=== PATIENT | male | born 1990 | race Caucasian/White ===

== ENCOUNTER 2016-10-19 20:01 | Emergency (ER) | payer OTHER ==
[~2016-10-19] VITALS: Ht 182.9 cm; Wt 73.3 kg
[2016-10-19] MEDS ORDERED: IBUPROFEN 200 MG TABLET PO ONE (20:30)
[2016-10-19] MEDS ORDERED: OXYcodone/APAP 5/325MG TABLET PO ONE (20:30)
[2016-10-19] MEDS ORDERED: OXYcodone/APAP 5/325MG TABLET ONE (20:32)
[2016-10-19] MEDS ORDERED: IBUPROFEN 200 MG TABLET ONE (20:32)
[2016-10-19 21:24] VITALS: BP 128/73
== END 2016-10-19 21:32 | disposition home or self-care (01) ==
LOC: ED 21:26
DX: S82.65XA Nondisplaced fracture of lateral malleolus of left fibula, initial encounter for closed fracture (principal); S92.322A Displaced fracture of second metatarsal bone, left foot, initial encounter for closed fracture; S92.332A Displaced fracture of third metatarsal bone, left foot, initial encounter for closed fracture; S92.342A Displaced fracture of fourth metatarsal bone, left foot, initial encounter for closed fracture; X58.XXXA Exposure to other specified factors, initial encounter; Y93.55 Activity, bike riding; Y92.410 Unspecified street and highway as the place of occurrence of the external cause; Y99.8 Other external cause status
CPT/HCPCS: 29515